=== PATIENT | female | born 1990 | race Caucasian/White ===

== ENCOUNTER 2018-05-14 23:05 | Observation (INO) | payer OTHER ==
[~2018-05-14] VITALS: Ht 154.9 cm; Wt 80.3 kg
[2018-05-15] MEDS ORDERED: LACTATED RINGERS 1,000 ML IV ONE
[2018-05-15] MEDS ORDERED: ACETAMINOPHEN 500MG TABLET PO SCH (00:15)
[2018-05-15 00:45] LABS: BASOPHILS % 0.2 % (0.0-2.0); EOSINOPHILS % 2.5 % (0.0-5.0); HEMATOCRIT. 31.7 % (36.0-48.0); HEMOGLOBIN. 10.8 g/dL (12.0-16.0); LYMPHOCYTES % 25.6 % (20.0-50.0); MEAN CORPUSCULAR VOLUME 85.2 fL (81.0-99.0); MEAN PLATELET VOLUME 8.9 fl (7.4-10.4); MONOCYTES % 7.9 % (2.0-8.0); NEUTROPHILS % 63.8 % (40.0-76.0); PLATELET 234 x1000/uL (130-400); RED BLOOD CELL COUNT 3.72 mill/uL (4.2-5.4); RED CELL DISTRIBUTION WIDTH 13.5 % (11.6-14.6)
[2018-05-15 00:46] LABS: CLARITY URINE CLOUDY (CLEAR); COLOR URINE YELLOW (YELLOW); KETONES URINE NEGATIVE (NEGATIVE); LEUKOCYTE ESTERASE URINE 3+ (NEGATIVE); NITRITE URINE NEGATIVE (NEGATIVE); OCCULT BLOOD URINE NEGATIVE (NEGATIVE); PROTEIN URINE NEGATIVE (NEGATIVE); SPECIFIC GRAVITY URINE 1.017 (1.005-1.030); UROBILINOGEN URINE 0.2 E.U./dL (0.2-1.0)
[2018-05-15] MEDS ORDERED: CEFAZOLIN 2,000 MG in DEXT 5% WATER 100 ML IV SCH (01:30)
[2018-05-15] MEDS ORDERED: PNV1TABL76 PO (02:07)
== END 2018-05-15 02:20 | disposition home or self-care (01) ==
LOC: L&D 23:05
PROVIDERS: ADMIT Obstetrics & Gynecology; ATTEND Obstetrics & Gynecology
DX: O99.89 Other specified diseases and conditions complicating pregnancy, childbirth and the puerperium (principal); M54.5 Low back pain; M25.571 Pain in right ankle and joints of right foot; O12.02 Gestational edema, second trimester; Z3A.20 20 weeks gestation of pregnancy
CPT/HCPCS: 36415; 81003; 85025; 96361; 96365; 99281; G0378; J0690; J7120; 96360; J7060

== ENCOUNTER 2018-05-15 02:32 | Emergency (ER) | payer OTHER ==
[~2018-05-15] VITALS: Ht 154.9 cm; Wt 81.0 kg
[~2018-05-15 02:32] MED LIST: PNV1TABL76 PO
[2018-05-15 05:39] LABS: CHLORIDE 107 mEq/L (98-107)
[2018-05-15 06:01] VITALS: BP 98/62
== END 2018-05-15 06:08 | disposition home or self-care (01) ==
LOC: ER 03:16
DX: R60.9 Edema, unspecified (principal); N39.0 Urinary tract infection, site not specified; K21.9 Gastro-esophageal reflux disease without esophagitis
CPT/HCPCS: 36415; 80053; 93970; 99285; Z7610